=== PATIENT | female | born 1980 | race Caucasian/White ===

== ENCOUNTER 2018-12-23 20:07 | Emergency (ER) | payer OTHER ==
[~2018-12-23 20:07] MED LIST: ISOVUE-370 76%-LOCM 1 ML ONE
[2018-12-23] MEDS ORDERED: Lorazepam 2 MG/ML VIAL ONE (21:34)
--- NOTE | 2018-12-23 22:12 | RAD ---
Exam: Chest one view: HISTORY: Shortness of breath, history of COPD FINDINGS: Right subclavian catheter injection port. Small opacity overlies the right paravertebral region overl ankita the right heart border. No confluent pneumonia, overt edema, or pleural effusion. Heart size is normal. IMPRESSION: No acute intrathoracic disease.
[2018-12-23 22:17] LABS: #Lymphocytes 3.1 thou/uL (1.20-3.40); #Monocytes 0.6 thou/uL (0.11-0.59); #Neutrophils 8.1 thou/uL (1.40-6.50); %Basophils 0.2 % (0.0-1.0); %Eosinophils 0.2 % (0.0-10.0); %Lymphocytes 26.2 % (21.0-51.0); %Neutrophils 68.3 % (42.0-75.0); Hemoglobin 14.2 g/dL (12.0-16.0); Mean Corpuscular HGB CONC 34.8 g/dL (32.0-36.0); Mean Corpuscular Volume 91.9 fL (78.0-98.0); Mean Platelet Volume 6.8 fL (7.4-10.4); Platelet Count 310 thou/uL (130-400); RBC Distribution Width 12.7 % (11.5-14.5); Red Blood Cell (RBC) Count 4.43 mill/uL (4.20-5.40); White Blood Cell (WBC) Count 11.9 thou/uL (4.8-10.8)
[2018-12-23 22:20] LABS: Bilirubin Moderate (Negative); Blood, Urine Negative (Negative); Clarity TURBID (Clear); Glucose, Urine (Dipstick) Negative (Negative); Leukocyte Small (Negative); Nitrite Negative (Negative); Pregnancy Test - Urine (BHCG) Negative (Negative); Pregu Control Background? CLEAR/WHITE (CLR/WHITE); Pregu Control Bar Appear? YES (CONTROL BAR); Protein, Urine (Dipstick) 100 mg/dL (Neg-Trace); Specific Gravity 1.035 (1.002-1.036)
[2018-12-23 22:22] LABS: PTT 27.1 SEC (22.9-36.1); Prothrombin Time 13.6 SEC (12.0-14.7)
[2018-12-23 22:23] LABS: D-Dimer Test 1.26 *mcg/mL (0.27-0.43)
[2018-12-23 22:24] LABS: Squamous Epithelial 21-50 HPF (0-3); WBC/HPF 21-50 HPF (0-3)
[2018-12-23 22:25] LABS: Pathc Cast-AUWi Flag 11.97 (0-2.49); Yeast-AUWi Flag 59.5 (0-25.0)
[2018-12-23 22:32] LABS: Bacteria/HPF 3+ HPF (None Seen); Hyaline Casts/LPF 4-6 HYALINE CAST LPF (0-3 Hyaline); RBC/HPF 0-3 HPF (0-3)
[2018-12-23 22:40] LABS: ALT (SGPT) 60 U/L (8-55); AST (SGOT) 51 U/L (5-34); Albumin 4.3 g/dL (3.5-5.0); Alkaline Phosphatase 79 U/L (40-150); Anion Gap 15 mmol/L (10-20); BUN (Urea Nitrogen) 7 mg/dL (7.0-18.7); Bilirubin, Total 0.3 mg/dL (0.2-1.2); Calc. Creatinine Clearance 0 mL/min (70-130); Calcium 9.8 mg/dL (7.8-10.44); Carbon Dioxide 22 mmol/L (22-29); Chloride 109 mmol/L (98-107); Estimated GFR-MDRD 76; Globulin 3.2 g/dL (2.4-3.5); Glucose 99 mg/dL (70-105); Lipase 15 U/L (8-78); Protein, Total 7.5 g/dL (6.0-8.3); Sodium 143 mmol/L (136-145)
[2018-12-23 22:45] LABS: Potassium 2.8 mmol/L (3.5-5.1)
--- NOTE | 2018-12-23 23:17 | CT ---
EXAM: CT angiogram of the chest including 3-D rendering: HISTORY: Dyspnea shortness of breath anxiety COMPARISON: None FINDINGS: There is adequate opacification of the pulmonary arteries. No evidence for aortic aneurysm or dissection. No convincing CT evidence for acute pulmonary embolism. No significant acute pulmonary parenchymal process. No evidence for mediastinal mass or adenopathy. No evidence for pleural or pericardial effusion. The visualized upper abdomen is unremarkable. Minimal chronic appearing pleural-based parenchymal changes in the lingula and right middle lobe. Poo rly circumscribed 0.4 cm nodule in the right middle lobe. Postsurgical device between the right ventricle and the right side of the left atrium. IMPRESSION: No convincing CT evidence for acute pulmonary embolism. Minimal linear scarring in the right middle lobe and lingula. 0.4 cm irregularly-shaped nodular focus in the right middle lobe.
[2018-12-23] MEDS ORDERED: Potassium Chloride 20 MEQ TAB ONE (23:23)
== END 2018-12-24 01:01 | disposition home or self-care (01) ==
LOC: ERS 20:07
DX: F41.9 Anxiety disorder, unspecified (principal); R06.02 Shortness of breath; F32.9 Major depressive disorder, single episode, unspecified; F43.10 Post-traumatic stress disorder, unspecified; F42.9 Obsessive-compulsive disorder, unspecified; Z86.73 Personal history of transient ischemic attack (TIA), and cerebral infarction without residual deficits; Z79.899 Other long term (current) drug therapy
CPT/HCPCS: 36415; 71045; 71275; 80053; 81003; 81015; 81025; 83690; 83735; 85025; 85379; 85610; 85730; 87086; 96361; 96374; 96375; J1642; J2060; Q9966

== ENCOUNTER 2019-01-13 00:11 | Emergency (ER) | payer OTHER ==
[2019-01-13 00:52] LABS: Hemoglobin 14.3 g/dL (12.0-16.0); Mean Corpuscular HGB CONC 33.4 g/dL (32.0-36.0); Mean Corpuscular Hemoglobin 31.4 pg (27.0-31.0); Mean Platelet Volume 6.8 fL (7.4-10.4); Platelet Count 253 thou/uL (130-400); RBC Distribution Width 13.8 % (11.5-14.5); Red Blood Cell (RBC) Count 4.55 mill/uL (4.20-5.40); White Blood Cell (WBC) Count 11.7 thou/uL (4.8-10.8)
[2019-01-13 01:00] LABS: ALT (SGPT) 13 U/L (8-55); AST (SGOT) 15 U/L (5-34); Alkaline Phosphatase 82 U/L (40-150); Anion Gap 12 mmol/L (10-20); BUN (Urea Nitrogen) 5 mg/dL (7.0-18.7); Bilirubin, Total 0.3 mg/dL (0.2-1.2); Calc. Creatinine Clearance 0 mL/min (70-130); Calcium 9.4 mg/dL (7.8-10.44); Carbon Dioxide 23 mmol/L (22-29); Chloride 109 mmol/L (98-107); Estimated GFR-MDRD 84; Glucose 85 mg/dL (70-105); Potassium 3.8 mmol/L (3.5-5.1); Sodium 140 mmol/L (136-145)
[2019-01-13 01:05] LABS: #Monocytes 0.6 thou/uL (0.11-0.59); #Neutrophils 6.1 thou/uL (1.40-6.50); %Basophils 0.3 % (0.0-1.0); %Eosinophils 0.4 % (0.0-10.0); %Lymphocytes 42.1 % (21.0-51.0); %Neutrophils 52.1 % (42.0-75.0)
[2019-01-13 02:07] LABS: Bilirubin Negative (Negative); Blood, Urine Trace (Negative); Clarity Hazy (Clear); Glucose, Urine (Dipstick) Negative (Negative); Leukocyte Trace (Negative); Nitrite Negative (Negative); Protein, Urine (Dipstick) Trace mg/dL (Neg-Trace); Urobilinogen 0.2 mg/dL (Less than 2)
[2019-01-13 02:17] LABS: Bacteria/HPF 2+ HPF (None Seen); RBC/HPF 21-50 HPF (0-3); Squamous Epithelial 21-50 HPF (0-3); WBC/HPF 21-50 HPF (0-3)
[2019-01-13 02:49] LABS: Pregnancy Test - Urine (BHCG) Negative (Negative); Pregu Control Background? CLEAR/WHITE (CLR/WHITE); Pregu Control Bar Appear? YES (CONTROL BAR)
[2019-01-13 02:50] LABS: Specific Gravity Greater than 1.060 (1.002-1.036)
--- NOTE | 2019-01-13 07:35 | CT ---
PRELIMINARY REPORT/[facility]/EMERGENCY AFTER HOURS PROCEDURE: EXAM: CT Abdomen and Pelvis With Contrast EXAM DATE/TIME: 01/13/2019 12:50 AM CLINICAL HISTORY: 38 years old, female; Generalized; Prior surgery; Surgery date: 6+ months; Surgery type: HX of hysterectomy, cholecystectomy and appendectomy. ; Patient HX: 38yo female presents for abdominal pain for the last 2 weeks. 2 weeks ago she presented to [facility] for abd pain and was discharged with dx of viral gastroenteritis and hiatal hernia. The pain has increased in intensity si nce, she also endorses nausea/vomiting. Reports no bm or flatus for last 4 days. TECHNIQUE: Imaging protocol: Axial computed tomography images of the abdomen and pelvis with intravenous contrast. Coronal and sagittal reformatted images were created and reviewed. COMPARISON: No relevant prior studies available. FINDINGS: Liver: Diffuse fatty liver infiltration. No liver mass. Gallbladder and bile ducts: Cholecystectomy. Pancreas: No acute pathology. No ductal dilation. Spleen: No solid mass. No splenomegaly. Adrenals: No mass. Kidneys and ureters: No solid renal mass or hydronephrosis bilaterally. Simple 9 mm cyst left lower pole. Stomach and bowel: Fluid attenuation throughout the colonic lumen consistent with diarrheal stools. No bowel obstruction or wall thickening. Appendix: Appendectomy. Intraperitoneal space: No free air. Vasculature: IVC filter in place. No aortic aneurysm. Lymph nodes: No enlarged lymph nodes. Bladder: Unremarkable as visualized. Reproductive: Per history the patient is post hysterectomy however uterus is seen. Endometrium appears somewhat distended with fluid. Bones/joints: No acute fracture. No dislocation. Soft tissues: Unremarkable. IMPRESSION: Fatty liver. Fluid attenuation throughout the colonic lumen consistent with diarrheal stools. Per history the patient is post hysterectomy however uterus is seen. Endometrium appears somewhat distended with fluid. Thank you for allowing us to participate in the care of your patient. Dictated and Authenticated by: Raphael Brambila MD 01/13/2019 2:36 AM Central Time ([place] & [place]) FINAL REPORT CT ABDOMEN AND PELVIS WITH IV CONTRAST PERFORMED ON AN EMERGENCY BASIS: Date: 01/13/19 Time: 0111 hours HISTORY: Abdominal pain. FINDINGS/IMPRESSION: Agree with the preliminary report by Dr. Brambila from [facility]. Fluid within the endometria l cavity of the uterus. IVC filter in place. Fluid within the colon consistent with diarrhea, but a nonspecific finding. No active inflammation is apparent. Code QA. Transcribed Date/Time: 01/13/2019 7:45 AM
[2019-01-13] MEDS ORDERED: ISOVUE-370 76%-LOCM 1 ML ONE (13:32)
--- NOTE | 2019-01-14 14:08 | EKG ---
Test Reason : Blood Pressure : / mmHG Vent. Rate : 073 BPM Atrial Rate : 073 BPM P-R Int : 170 ms QRS Dur : 082 ms QT Int : 392 ms P-R-T Axes : 067 068 049 degrees QTc Int : 431 ms Normal sinus rhythm Normal ECG Confirmed by CARLOS ALBERTO ADAMS ([id number]), image editor KAREN ROMERO ([id number]) on 01/14/2019 2:07:58 PM Referred By: Confirmed By:CARLOS ALBERTO ADAMS
== END 2019-01-13 04:23 | disposition home or self-care (01) ==
LOC: ERS 00:11
DX: R10.13 Epigastric pain (principal); R10.817 Generalized abdominal tenderness; F41.9 Anxiety disorder, unspecified; F32.9 Major depressive disorder, single episode, unspecified; F42.9 Obsessive-compulsive disorder, unspecified; F43.10 Post-traumatic stress disorder, unspecified; F17.210 Nicotine dependence, cigarettes, uncomplicated; Z79.899 Other long term (current) drug therapy; Z86.73 Personal history of transient ischemic attack (TIA), and cerebral infarction without residual deficits
CPT/HCPCS: 36415; 74177; 80053; 81003; 81015; 81025; 83690; 85025; 93005; 96361; 96374; J1642; Q9966

== ENCOUNTER 2019-01-24 21:26 | Emergency (ER) | payer OTHER ==
--- NOTE | 2019-01-24 21:57 | RAD ---
Portable frontal chest radiograph: 01/24/2019 COMPARISON: 12/23/2018 HISTORY: Short of breath FINDINGS: Lungs are clear. Heart and mediastinal contours appear within normal limits. Stable Port-A- Cath on the right. Stable radiopaque structure overlies the cardiac silhouette to the right of midline suggesting a closure device associated with the atrial septum. IMPRESSION: No acute findings. Stable appearance of the chest.
[2019-01-24 22:23] LABS: #Basophils 0.1 thou/uL (0.0-0.2); #Lymphocytes 3.4 thou/uL (1.20-3.40); #Monocytes 0.7 thou/uL (0.11-0.59); #Neutrophils 5.9 thou/uL (1.40-6.50); %Basophils 0.5 % (0.0-1.0); %Eosinophils 0.4 % (0.0-10.0); %Lymphocytes 33.9 % (21.0-51.0); %Monocytes 6.7 % (0.0-10.0); %Neutrophils 58.5 % (42.0-75.0); Hemoglobin 15.1 g/dL (12.0-16.0); Mean Corpuscular HGB CONC 33.7 g/dL (32.0-36.0); Mean Corpuscular Hemoglobin 31.6 pg (27.0-31.0); Mean Corpuscular Volume 93.9 fL (78.0-98.0); Mean Platelet Volume 6.5 fL (7.4-10.4); Platelet Count 295 thou/uL (130-400); RBC Distribution Width 13.6 % (11.5-14.5); Red Blood Cell (RBC) Count 4.78 mill/uL (4.20-5.40); White Blood Cell (WBC) Count 10.1 thou/uL (4.8-10.8)
[2019-01-24 22:33] LABS: PTT 26.3 SEC (22.9-36.1); Prothrombin Time 13.4 SEC (12.0-14.7)
[2019-01-24 22:34] LABS: D-Dimer Test 1.3 *mcg/mL (0.27-0.43)
[2019-01-24 22:46] LABS: ALT (SGPT) 33 U/L (8-55); AST (SGOT) 29 U/L (5-34); Albumin 4.2 g/dL (3.5-5.0); Alkaline Phosphatase 100 U/L (40-150); Anion Gap 16 mmol/L (10-20); BUN (Urea Nitrogen) 7 mg/dL (7.0-18.7); Bilirubin, Total 0.4 mg/dL (0.2-1.2); CK (CPK) 97 U/L (29-168); Calc. Creatinine Clearance 0 mL/min (70-130); Calcium 9.8 mg/dL (7.8-10.44); Carbon Dioxide 20 mmol/L (22-29); Chloride 106 mmol/L (98-107); Estimated GFR-MDRD 87; Globulin 3.4 g/dL (2.4-3.5); Glucose 95 mg/dL (70-105); Potassium 3.9 mmol/L (3.5-5.1); Protein, Total 7.6 g/dL (6.0-8.3); Sodium 138 mmol/L (136-145)
--- NOTE | 2019-01-24 23:44 | ULT ---
Right upper extremity venous Doppler ultrasound: 01/24/2019 COMPARISON: None HISTORY: Neck swelling TECHNIQUE: Multiplanar grayscale sonographic imaging of the venous structures of the right upper extr emity obtained with color flow and spectral analysis FINDINGS: The right internal jugular vein, subclavian vein, axillary vein, basilic vein, brachial vei n, cephalic vein, ulnar vein, and radial vein were interrogated in demonstrate patency with no evidence for DVT. IMPRESSION: No evidence for deep venous thrombosis of the right upper extremity.
[2019-01-25] MEDS ORDERED: Fentanyl 100 MCG/2 ML VIAL ONE (00:04)
[2019-01-25 00:20] LABS: Bilirubin Negative (Negative); Blood, Urine Negative (Negative); Clarity Clear (Clear); Glucose, Urine (Dipstick) Normal (Negative); Leukocyte Negative Leu/uL (Negative); Nitrite Negative (Negative); Protein, Urine (Dipstick) 10 mg/dL (Neg-Trace)
[2019-01-25 00:29] LABS: Medtox Reader # READER 4; Opiate Screen Detected (NotDetected); THC/Cannabinoid Screen Detected (NotDetected)
[2019-01-25 00:30] LABS: Amphetamine Not Detected (NotDetected); Barbiturates Screen Not Detected (NotDetected); Benzodiazepine Screen Detected (NotDetected); Cocaine Metabolite Screen Not Detected (NotDetected); Medtox Control Line Valid? VALID (VALID); Methadone Not Detected (NotDetected); Methamphetamine Not Detected (NotDetected); Oxycodone Screen Not Detected (NotDetected); Phencyclidine (PCP) Not Detected (NotDetected); Tricyclic Screen Detected (NotDetected)
--- NOTE | 2019-01-25 06:20 | CT ---
CT ANGIOGRAM CHEST: 01/24/2019 HISTORY: Dyspnea. Assess for pulmonary embolism. COMPARISON: None. TECHNIQUE: Axial CT imaging at 2.5 mm intervals, through the chest, with coronal and sagittal 3D reformatted rohan ging, using a CT angiogram protocol. FINDINGS: There is a right-sided Port-A-Cath present, with the distal tip extending into the region of the cavo atrial junction, in stable position. An atrioseptal closure device is noted. There is no axillary lymphadenopathy. No mediastinal or hilar lymphadenopathy is seen. There is no pleural, pericardial, or mediastinal fluid evident. Review of the upper abdomen demonstrates cholecystectomy clips. There is no pneumothorax seen on either side. There is linear density in the lingula, inferiorly, suggesting scar and/or volume loss, stable. There is a right middle lobe pulmonary nodule, measuring 5-6 mm, stable when compared to the 12/24/19 19 study. Review of the osseous structures demonstrates no worrisome lytic or blastic bone lesions. There is no discrete filling defect seen within the pulmonary arterial vasculature to suggest the pre sence of acute pulmonary embolism. There is mixing of opacified and un opacified blood in the region of the internal jugular vein, on th e right. Doppler interrogation of the right internal jugular vein performed on 01/24/2019 demonstrat ed patency. IMPRESSION: No evidence for pulmonary arterial embolism. POS: OFF
--- NOTE | 2019-01-27 14:47 | EKG ---
Test Reason : Blood Pressure : / mmHG Vent. Rate : 076 BPM Atrial Rate : 076 BPM P-R Int : 164 ms QRS Dur : 078 ms QT Int : 386 ms P-R-T Axes : 052 025 012 degrees QTc Int : 434 ms Normal sinus rhythm Possible Left atrial enlargement Borderline ECG Confirmed by RACHAEL LOPEZ MD ([id number]), editorial writer ERICKA BRISCOE ([id number]) on 01/27/2019 2:46:55 PM Referred By: Confirmed By:RACHAEL LOPEZ MD
== END 2019-01-25 00:45 | disposition home or self-care (01) ==
LOC: ERS 21:26
DX: M54.2 Cervicalgia (principal); F41.9 Anxiety disorder, unspecified; F32.9 Major depressive disorder, single episode, unspecified; F43.10 Post-traumatic stress disorder, unspecified; F17.210 Nicotine dependence, cigarettes, uncomplicated; Z79.899 Other long term (current) drug therapy
CPT/HCPCS: 36415; 71045; 71275; 80053; 80306; 81003; 82550; 84484; 85025; 85379; 85610; 85730; 93005; 94760; 96361; 96374; J3010; Q9966

== ENCOUNTER 2020-02-01 23:21 | Emergency (ER) | payer OTHER | END 2020-02-01 23:32 | disposition home or self-care (01) | LOC: ERS 23:21 | DX: K02.9 Dental caries, unspecified (principal); J44.9 Chronic obstructive pulmonary disease, unspecified; F41.9 Anxiety disorder, unspecified; F32.9 Major depressive disorder, single episode, unspecified; F43.10 Post-traumatic stress disorder, unspecified; F17.210 Nicotine dependence, cigarettes, uncomplicated; F42.9 Obsessive-compulsive disorder, unspecified; Z86.73 Personal history of transient ischemic attack (TIA), and cerebral infarction without residual deficits; Z79.899 Other long term (current) drug therapy | CPT/HCPCS: 99283 ==

== ENCOUNTER 2020-07-28 01:12 | Observation (INO) | payer OTHER ==
[2020-07-28 02:00] LABS: Bilirubin Negative (Negative); Blood, Urine Trace (Negative); Clarity Turbid (Clear); Glucose, Urine (Dipstick) Normal (Negative); Ketone, Urine Negative (Negative); Leukocyte 500 Leu/uL (Negative); Nitrite Negative (Negative); Protein, Urine (Dipstick) Negative (Neg-Trace); Specific Gravity, Urine 1.012 (1.002-1.036); Urobilinogen Normal mg/dL (Less than 2); WBC/HPF 21-50 HPF (0-3); pH, Urine 5.5 (5.0-9.0)
[2020-07-28 02:01] LABS: Bacteria/HPF 1+ HPF (None Seen)
[2020-07-28] MEDS ORDERED: Acetaminophen 500 MG TAB ONE (02:01)
[2020-07-28 02:15] LABS: Hemoglobin 14.7 g/dL (12.0-16.0); Mean Corpuscular HGB CONC 33.9 g/dL (32.0-36.0); Mean Corpuscular Hemoglobin 30.5 pg (27.0-31.0); Mean Corpuscular Volume 89.8 fL (78.0-98.0); Mean Platelet Volume 6.5 fL (7.4-10.4); Platelet Count 314 thou/uL (130-400); Red Blood Cell (RBC) Count 4.84 mill/uL (4.20-5.40); White Blood Cell (WBC) Count 26.3 thou/uL (4.8-10.8)
[2020-07-28 02:23] LABS: Amphetamine Not Detected (NotDetected); Barbiturates Screen Not Detected (NotDetected); Benzodiazepine Screen Detected (NotDetected); Cocaine Metabolite Screen Not Detected (NotDetected); Medtox Control Line Valid? VALID (VALID); Medtox Reader # READER 4; Methadone Not Detected (NotDetected); Methamphetamine Not Detected (NotDetected); Opiate Screen Not Detected (NotDetected); Oxycodone Screen Not Detected (NotDetected); Phencyclidine (PCP) Not Detected (NotDetected); THC/Cannabinoid Screen Detected (NotDetected); Tricyclic Screen Not Detected (NotDetected)
[2020-07-28 02:33] LABS: Pregnancy Test - Urine (BHCG) Negative (Negative); Pregu Control Background? CLEAR/WHITE (CLR/WHITE); Pregu Control Bar Appear? YES (CONTROL BAR); Specific Gravity 1.012 (1.002-1.036)
[2020-07-28 02:38] LABS: ALT (SGPT) 12 U/L (8-55); AST (SGOT) 13 U/L (5-34); Acetaminophen Less than 6.0 mcg/mL (10.0-30.0); Albumin 4.3 g/dL (3.5-5.0); Alcohol Less than 10 mg/dL (Less than 10); Alkaline Phosphatase 91 U/L (40-110); Anion Gap 16 mmol/L (10-20); BUN (Urea Nitrogen) 6 mg/dL (7.0-18.7); Bilirubin, Total 0.3 mg/dL (0.2-1.2); Calc. Creatinine Clearance 0 mL/min (70-130); Calcium 9.1 mg/dL (7.8-10.44); Carbon Dioxide 18 mmol/L (22-29); Chloride 106 mmol/L (98-107); Globulin 3.7 g/dL (2.4-3.5); Glucose 102 mg/dL (70-105); Potassium 3.7 mmol/L (3.5-5.1); Salicylate Less than 8.0 mg/dL (15.0-30.0); Sodium 136 mmol/L (136-145)
[2020-07-28 02:46] LABS: Band 2 % (5-11); Lymphocytes 14 % (21-51); MDiff Complete? YES; Monocytes 2 % (0-10); Neutrophil 80 % (42-75); Reactive Lymphocytes 2 % (0-10)
[2020-07-28] MEDS ORDERED: cefTRIAXone\\ROCEPHIN 1 GM VIAL ONE (03:05)
[2020-07-28] MEDS ORDERED: Metoclopramide 10 MG/10 ML UDCUP ONE (05:59)
[2020-07-28] MEDS ORDERED: Metoclopramide HCl 10 MG/2 ML VIAL ONE (05:59)
[2020-07-28] MEDS ORDERED: diphenhydrAMINE 50 MG/ML VIAL ONE (05:59)
[2020-07-28] MEDS ORDERED: clonazePAM 1 MG TAB ONE (07:25)
[2020-07-28] MEDS ORDERED: Diazepam 5 MG TAB ONE (07:25)
--- NOTE | 2020-07-28 07:40 | CT ---
PRELIMINARY REPORT/[facility]/AFTER HOURS PROCEDURE CT HEAD WITHOUT INTRAVENOUS CONTRAST: CLINICAL HISTORY: Headache. TECHNIQUE: Axial computed tomography images of the head/brain without intravenous contrast. COMPARISON: None provided. FINDINGS: BRAIN: No acute intraparenchymal hemorrhage. No mass lesion. No CT evidence for acute territorial inf arct. No midline shift or extra-axial collection. VENTRICLES: No hydrocephalus. ORBITS: The orbits are unremarkable. SINUSES AND MASTOIDS: Frothy secretions are noted within the left sphenoid sinus. A trace fluid leve l is appreciated within the right sphenoid sinus. The mastoid air cells are clear. SOFT TISSUES: No significant facial or scalp soft tissue swelling evident. No radiopaque foreign body is seen. BONES: No acute skull fracture. IMPRESSION: 1. No acute intracranial findings. 2. Frothy secretions within the left sphenoid sinus and a trace fluid level within the right sphenoi d sinus, correlate for acute sinusitis. ELECTRONICALLY SIGNED BY: Satish Mckeon MD Jul 28, 2020 2:44:49 AM [employer] This report is intended for review by the ordering physician only, in accordance of law. If you recei ve this report in error, please call [facility] at [phone]. FINAL REPORT BY DR KIM EMERGENCY AFTER HOURS STUDY CT BRAIN WITHOUT CONTRAST: 07/28/2020 2:32 a.m. HISTORY: 40-year-old female with severe headache. FINDINGS: There is no evidence of acute intra-axial or extra-axial hemorrhage. There is no midline shift or any other mass effect. There is no extra-axial fluid collection. There is no evidence of obstructive hydrocephalus. Calvarium is intact. Frothy secretion in left sphenoid air cell. Tiny air-fluid level versus minimal mucosal thickening in right sphenoid air cell. Minimal mucosal thickening in right ethmoid air cells. Frontal sinuses are clear. Bilateral tympanomastoid cavities are clear. Agree with preliminary report by [facility]. IMPRESSION: No acute intracranial findings. CODE QA Transcribed Date/Time: 07/28/2020 9:38 AM
--- NOTE | 2020-07-28 08:39 | CT ---
CT ABDOMEN WITH CONTRAST CT PELVIS WITH CONTRAST: DATE: 07/28/2020 HISTORY: 40-year-old female with abdominal pain, nausea, vomiting, and leukocytosis. COMPARISON: 01/13/2019 TECHNIQUE: IV injection of iodinated contrast media: administered. Oral contrast media:Not administered FINDINGS: Lung bases: No consolidation or pleural effusion. IVC: Filter. Liver: Fatty. No other hepatic abnormality. Clips in gallbladder fossa. Abdominal aorta, kidneys, adrenals, pancreas, spleen, and urinary bladder, are normal. No evidence of appendicitis. History of appendectomy provided. Large intestine: Liquid stool in the lumen throughout, greater than on prior CT. No diverticulitis. Small bowel: No dilation. Ascites: None Pneumoperitoneum: None Abscess: None IMPRESSION: 1) diarrhea 2) hepatic steatosis. 3) status post cholecystectomy 4) inferior vena cava filter. 5) no other potentially acute findings.
[2020-07-28] MEDS ORDERED: Topiramate 25 MG TAB PO SCH ×2 (09:00→17:00)
[2020-07-28] MEDS ORDERED: OXcarbazepine 600 MG TAB PO SCH (09:00)
[2020-07-28] MEDS ORDERED: OXcarbazepine 300 MG TAB PO SCH (09:00)
[2020-07-28] MEDS ORDERED: DULoxetine 30 MG CAP PO SCH (09:00)
[2020-07-28] MEDS ORDERED: Montelukast Sodium 10 mg Tablet PO SCH (09:00)
[2020-07-28] MEDS ORDERED: Propranolol HCl 20 MG TAB PO SCH (09:00)
--- NOTE | 2020-07-28 09:24 | RAD ---
RADIOGRAPH CHEST 1 VIEW: DATE: 07/28/2020 HISTORY: 40-year-old female with suicidal ideation. Nausea and vomiting. COMPARISON: 01/24/2019 FINDINGS: There are no airspace densities, pulmonary edema, pneumothorax, or cardiomegaly. The lateral costophr enic angles are sharp. Right subclavian implantable vascular access port remains with distal tip at SVC. There has been no interval change. No pneumoperitoneum. IMPRESSION: 1. No acute cardiopulmonary findings. 2. Evidence for cancer therapy: Right-sided implantable vascular access port
[2020-07-28] MEDS ORDERED: Iopamidol-370 76% 500 ML 1 ML ONE (10:07)
[2020-07-28] MEDS ORDERED: Ketorolac Tromethamine 30 MG/ML VIAL ONE (11:24)
[2020-07-28] MEDS ORDERED: Promethazine HCl 25 MG/ML VIAL ONE (11:25)
--- NOTE | 2020-07-28 12:28 | PDOC.HHP ---
Hospitalist HPI Suicidial Ideation History of Present Illness: 40 y/o female presents to ER for feelings of not wanting to live and feeling overwhelmed with life. She states her mother the day of [place] and she has just had a hard time living in reality since then. States she does not have an active plan but "would be fine if I didn't wake up tomorrow." Has felt this way on and off since her mother . Denies homicidal thoughts, hallucinations. States her appetite has been appropriate. Denies guilt and energy has been poor. Patient also has abdominal pain, diarrhea, left flank pain, dysuria, frequency, urgency and vomiting x4 days. She has been vomiting on and off 4-5x/daily. The color depends on stomach contents, denies blood in vomit. Abdominal and flank pain started yesterday, described as intermittent with no radiation. She denies any relieving or exacerbating factors. The abdominal pain was in left lower quadrant. Patient denies fever or chills. No travel history. Patient c/o headache since this morning, described as throbbing, worse with light or loud sounds. She has nausea and vomiting associated with the headache. She didn't take anything at home for the headache. Allergies/Adverse Reactions: Allergy/AdvReac Type Severity Reaction Status Date / Time acetaminophen [From Vicodin] Allergy Verified 07/28/20 08:45 butorphanol [From Stadol] Allergy Verified 07/28/20 08:45 codeine Allergy Verified 07/28/20 08:44 hydrocodone [From Vicodin] Allergy Verified 07/28/20 08:45 hydromorphone [From Dilaudid] Allergy Verified 07/28/20 08:45 ketorolac [From Toradol] Allergy Verified 07/28/20 08:45 NSAIDS (Non-Steroidal Allergy Verified 07/28/20 08:45 Anti-Inflamma ondansetron [From Zofran] Allergy Verified 07/28/20 08:45 prednisone Allergy Verified 07/28/20 08:45 prochlorperazine Allergy Verified 07/28/20 08:45 [From Compazine] Home Medications: Medication Instructions Recorded Confirmed Type DULoxetine [Cymbalta] 90 mg PO DAILY 07/28/20 07/28/20 History Diazepam [Valium] 5 mg PO Q8H PRN 07/28/20 07/28/20 History Fondaparinux Sodium 7.5 mg SQ DAILY 07/28/20 07/28/20 History Mirtazapine [Remeron] 45 mg PO HS 07/28/20 07/28/20 History Montelukast Sodium [Singulair] 10 mg PO DAILY 07/28/20 07/28/20 History OXcarbazepine [Trileptal] 1,200 mg PO DAILY 07/28/20 07/28/20 History Propranolol [Inderal] 20 mg PO TID 07/28/20 07/28/20 History Topiramate [Topamax] 25 mg PO TID 07/28/20 07/28/20 History Umeclidinium [place] [Incruse 1 inh IH DAILY 07/28/20 07/28/20 History Ellipta] clonazePAM [Clonazepam] 1 mg PO TID 07/28/20 07/28/20 History traZODone HCl [Trazodone HCl] 225 mg PO HS 07/28/20 07/28/20 History Comments: clonazePAM TABLET : Strength - 1 mg : ORAL Patient Dose: 1 mg null 3 times a day. Cymbalta CAPSULE,DELAYED RELEASE (ENTERIC COATED) : Strength - 30 mg : ORAL Patient Dose: 3 tab(s) Oral once a day. Remeron TABLET : Strength - 45 mg : ORAL Patient Dose: 1 tab(s) Oral once a day (at bedtime). Trileptal TABLET : Strength - 600 mg : ORAL Patient Dose: 2 tab(s) Oral once a day. traZODone TABLET : Strength - 150 mg : ORAL Patient Dose: 1.5 tab(s) Oral once a day (at bedtime). fondaparinux SYRINGE (ML) : Strength - 7.5 mg/0.6 mL : [0.6 mL(s)] : SUBCUTANEOUS Patient Dose: once a day. Topamax TABLET : Strength - 25 mg : ORAL Patient Dose: 1 tab(s) Oral 3 times a day. Singulair TABLET : Strength - 10 mg : ORAL Patient Dose: once a day. Incruse Ellipta BLISTER, WITH INHALATION DEVICE : Strength - 62.5 mcg/actuation : INHALATION Patient Dose: Unknown. propranolol oral TABLET : Strength - 20 mg : ORAL Patient Dose: 1 tab(s) Oral 3 times a day. Past History: PMHx: 1. COPD - wears oxygen at night and as needed during the day. 2. 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 Migraines 5. Major Depressive Disorder 6. PTSD 7. Anxiety 8. Borderline Personality Disorder PSHx: 1. Tendon Surgery to Right Hand 2. PORT-A-CATH placement x5 3. Appendectomy 4. Cholecystectomy 5. Tubal ligation 6. Lipom removed off the spine FHx: Noncontributory Social: Smokes cigarettes, 1 ppd Smokes marijuana occasionally Denies any alcohol intake. Hospitalist HPI ROS Constitutional: denies: fever, chills, sweats, weakness, malaise Eyes: denies: pain, vision change, conjunctivae inflammation, eyelid inflammation, redness ENT: denies: ear pain, ear discharge, nose pain, nose discharge, nose congestion, mouth pain, mouth swelling, throat pain, throat swelling Respiratory: denies: cough, dry, shortness of breath, hemoptysis, SOB with excertion, pleuritic pain, sputum, wheezing Cardiovascular: denies: chest pain, palpitations, orthopnea, paroxysmal noc. dy spnea, edema, light headedness Gastrointestinal: reports: nausea, vomiting, abdominal pain, diarrhea Genitourinary: reports: dysuria, frequency (Right CVA tenderness) Musculoskeletal: denies: neck pain, shoulder pain, arm pain, back pain, hand pain, leg pain, foot pain Skin: denies: rash, lesions, gail, bruising Neurological: denies: weakness, numbness, incoordination, change in speech, confusion, seizures All other systems reviewed; all pertinent +/- noted in HPI/Subj Hospitalist Exam General Appearance: NAD, awake alert Eye: PERRL, anicteric sclera ENT: normocephalic atraumatic, no oropharyngeal lesions, moist mucosa Neck: supple, symmetric, no JVD, no thyromegaly, no lymphadenopathy, no carotid bruit Heart: RRR, no murmur, no gallops, no rubs, normal peripheral pulses Respiratory: CTAB, no wheezes, no rales, no ronchi, normal chest expansion, no tachypnea, normal percussion Gastrointestinal: soft, non-distended, no palpable masses, no hepatomegaly, no splenomegaly, no bruit, tender to palpation (LLQ). negative: normal bowel sounds (hyperactive bowel sounds) Extremities: no cyanosis, no clubbing, no edema Skin: normal turgor, no lesions, no rashes Neurological: cranial nerve grossly intact, normal sensation to touch, no weakness, no focal deficits, no new deficit Musculoskeletal: normal tone, normal strength, no muscle wasting Psychiatric: normal affect, normal behavior, A&O x 3 Hospitalist Results Result Diagrams: 07/28/20 02:03 07/28/20 02:03 Lab results: Laboratory Last Values WBC 26.3 thou/uL (4.8-10.8) H 07/28/20 02:03 RBC 4.84 mill/uL (4.20-5.40) 07/28/20 02:03 Hgb 14.7 g/dL (12.0-16.0) 07/28/20 02:03 Hct 43.4 % (36.0-47.0) 07/28/20 02:03 MCV 89.8 fL (78.0-98.0) 07/28/20 02:03 MCH 30.5 pg (27.0-31.0) 07/28/20 02:03 MCHC 33.9 g/dL (32.0-36.0) 07/28/20 02:03 RDW 15.0 % (11.5-14.5) H 07/28/20 02:03 Plt Count 314 thou/uL (130-400) 07/28/20 02:03 MPV 6.5 fL (7.4-10.4) L 07/28/20 02:03 Neutrophils % (Manual) 80 % (42-75) H 07/28/20 02:03 Band Neuts % (Manual) 2 % (5-11) L 07/28/20 02:03 Lymphocytes % (Manual) 14 % (21-51) L 07/28/20 02:03 Reactive Lymphs % 2 % (0-10) 07/28/20 02:03 Monocytes % (Manual) 2 % (0-10) 07/28/20 02:03 Lymphocytes # Not Reportable 07/28/20 02:03 Sodium 136 mmol/L (136-145) 07/28/20 02:03 Potassium 3.7 mmol/L (3.5-5.1) 07/28/20 02:03 Chloride 106 mmol/L (98-107) 07/28/20 02:03 Carbon Dioxide 18 mmol/L (22-29) L 07/28/20 02:03 Anion Gap 16 mmol/L (10-20) 07/28/20 02:03 BUN 6 mg/dL (7.0-18.7) L 07/28/20 02:03 Creatinine 0.73 mg/dL (0.6-1.1) 07/28/20 02:03 Estimated GFR (MDRD) 87 07/28/20 02:03 Glucose 102 mg/dL (70-105) 07/28/20 02:03 Lactic Acid 0.8 mmol/L (0.5-2.2) 07/28/20 09:18 Calcium 9.1 mg/dL (7.8-10.44) 07/28/20 02:03 Total Bilirubin 0.3 mg/dL (0.2-1.2) 07/28/20 02:03 AST 13 U/L (5-34) 07/28/20 02:03 ALT 12 U/L (8-55) 07/28/20 02:03 Alkaline Phosphatase 91 U/L (40-110) 07/28/20 02:03 Serum Total Protein 8.0 g/dL (6.0-8.3) 07/28/20 02:03 Albumin 4.3 g/dL (3.5-5.0) 07/28/20 02:03 Globulin 3.7 g/dL (2.4-3.5) H 07/28/20 02:03 Albumin/Globulin Ratio 1.2 g/dL (1.2-2.2) 07/28/20 02:03 TSH 3rd Generation 4.7422 uIU/mL (0.35-4.94) 07/28/20 02:03 Urine Color Light-Yellow (Yellow) 07/28/20 01:45 Urine Clarity Turbid (Clear) A 07/28/20 01:45 Urine pH 5.5 (5.0-9.0) 07/28/20 01:45 Ur Specific [place] 1.012 (1.002-1.036) 07/28/20 01:45 Ur Specific [place] 1.012 (1.002-1.036) 07/28/20 01:45 Urine Protein Negative mg/dL (Neg-Trace) 07/28/20 01:45 Urine Glucose (UA) Normal mg/dL (Negative) 07/28/20 01:45 Urine Ketones Negative mg/dL (Negative) 07/28/20 01:45 Urine Blood Trace (Negative) A 07/28/20 01:45 Urine Nitrite Negative (Negative) 07/28/20 01:45 Urine Bilirubin Negative (Negative) 07/28/20 01:45 Urine Urobilinogen Normal mg/dL (Less than 2) 07/28/20 01:45 Ur Leukocyte Esterase 500 [place]/uL (Negative) A 07/28/20 01:45 Urine RBC 11-20 HPF (0-3) A 07/28/20 01:45 Urine WBC 21-50 HPF (0-3) A 07/28/20 01:45 Ur Squamous Epith Cells 4-6 HPF (0-3) A 07/28/20 01:45 Urine Bacteria 1+ HPF (None Seen) A 07/28/20 01:45 Hyaline Casts 0-3 LPF (0-3) 07/28/20 01:45 Urine Test Negative (Negative) 07/28/20 01:45 Salicylates Less than 8.0 mg/dL (15.0-30.0) L 07/28/20 02:03 Urine Opiates Screen Not Detected (NotDetected) 07/28/20 01:45 Ur Oxycodone Screen Not Detected (NotDetected) 07/28/20 01:45 Urine Methadone Screen Not Detected (NotDetected) 07/28/20 01:45 Ur Propoxyphene Screen Not Detected (NotDetected) 07/28/20 01:45 Acetaminophen Less than 6.0 mcg/mL (10.0-30.0) L 07/28/20 02:03 Ur Barbiturates Screen Not Detected (NotDetected) 07/28/20 01:45 Ur Tricyclics Screen Not Detected (NotDetected) 07/28/20 01:45 Ur Phencyclidine Scrn Not Detected (NotDetected) 07/28/20 01:45 Ur Amphetamines Screen Not Detected (NotDetected) 07/28/20 01:45 U Methamphetamines Scrn Not Detected (NotDetected) 07/28/20 01:45 U Benzodiazepines Scrn Detected (NotDetected) H 07/28/20 01:45 U Cocaine Metab Screen Not Detected (NotDetected) 07/28/20 01:45 U Cannabinoids Screen Detected (NotDetected) H 07/28/20 01:45 Drug Screen Comment () 07/28/20 01:45 Plasma Alcohol Less than 10 mg/dL (Less than 10) 07/28/20 02:03 Hospitalist H&P A/P (1) Urinary tract infection Status: Acute (2) COPD (chronic obstructive pulmonary disease) Status: Chronic (3) Suicidal ideation Code(s): R45.851 - SUICIDAL IDEATIONS Status: Acute Plan: 40 y/o female patient admitted for UTI, COPD and Suicidal ideation. Labs showed Leukocytosis at 26.3. Normal liver and kidney function, GFR 87. Normal TSH. UDS positive for benzodiazepines and cannabinoids. Patient admits to marijuana use and takes Clonazepam. CT Abd/Pelvis showed diarrhea present, Portable chest xray showed metaport placement. PLAN: Urinary tract infection Urine culture Leukocytosis 26.3 Patient was given Rocephin in ER. COPD Monitor oxygen saturation Oxygen 4L via NC every night and PRN during the day. Suicidal ideation Depression PTSD Borderline Personality Disorder Anxiety -[facility] consult after medical clearance. - resume home clonazepam, diazepam, trazodone
[2020-07-28 15:22] VITALS: BMI 33.5
[2020-07-28] MEDS ORDERED: Propranolol 10 MG TAB PO SCH (17:00)
[2020-07-28] MEDS ORDERED: clonazePAM 1 MG TAB PO SCH (17:00)
[2020-07-28] MEDS: Diazepam 5 MG TAB PO PRN (18:04)
[2020-07-28] MEDS ORDERED: Metoclopramide HCl 10 MG/2 ML VIAL IVP PRN (20:38)
[2020-07-28] MEDS: Propranolol 10 MG TAB PO SCH (21:29)
[2020-07-28] MEDS: traZODone HCl 150 MG TAB PO SCH (21:29)
[2020-07-28] MEDS: Mirtazapine 15 MG TAB PO SCH (21:29)
[2020-07-28] MEDS: clonazePAM 1 MG TAB PO SCH (21:30)
[2020-07-28] MEDS: Nicotine 14 MG PATCH TOP SCH (21:30)
[2020-07-28] MEDS: Topiramate 25 MG TAB PO SCH (21:30)
[2020-07-28] MEDS ORDERED: Simethicone Chewable 80 MG TAB PO PRN (22:17)
[2020-07-29] MEDS ORDERED: Promethazine HCl 25 MG in Sodium Chloride 0.9% 50 ML IVPB PRN (03:53)
[2020-07-29] MEDS: Diazepam 5 MG TAB PO PRN ×3 (04:31→22:46)
[2020-07-29 04:59] LABS: SARS-CoV-2 PCR by NAA Not Detected (NotDetected)
[2020-07-29] MEDS ORDERED: traMADol HCl 50 MG TAB PO PRN (08:01)
[2020-07-29] MEDS: Ipratropium Bromide 2.5 ml Neb NEB SCH (08:15)
[2020-07-29] MEDS: DULoxetine 30 MG CAP PO SCH (08:40)
[2020-07-29] MEDS: clonazePAM 1 MG TAB PO SCH ×3 (08:40→22:02)
[2020-07-29] MEDS: OXcarbazepine 300 MG TAB PO SCH (08:41)
[2020-07-29] MEDS: Topiramate 25 MG TAB PO SCH ×3 (08:41→22:03)
[2020-07-29] MEDS: Propranolol 10 MG TAB PO SCH ×3 (08:42→22:04)
[2020-07-29] MEDS: Montelukast Sodium 10 mg Tablet PO SCH (08:42)
[2020-07-29] MEDS: Lidocaine 5% Patch TD SCH (08:53)
[2020-07-29] MEDS ORDERED: OXcarbazepine 600 MG TAB PO SCH (09:00)
[2020-07-29] MEDS ORDERED: FONDAPARINUX SODIUM SC SCH (09:00)
[2020-07-29] MEDS ORDERED: Fondaparinux Sodium 2.5 MG/0.5 ML SYRINGE SC SCH (09:00)
[2020-07-29] MEDS ORDERED: Loperamide HCl 1 MG/7.5 ML UDCUP PO PRN (11:00)
[2020-07-29] MEDS: Dicyclomine 10 MG CAP PO SCH ×3 (12:27→22:04)
[2020-07-29] MEDS: Morphine 2 MG/ML VIAL SLOW IVP PRN ×3 (12:27→22:05)
[2020-07-29] MEDS: Promethazine HCl 25 MG in Sodium Chloride 0.9% 50 ML IVPB PRN ×2 (13:46→22:06)
[2020-07-29] MEDS: Lactinex Tablet PO SCH ×2 (15:06→22:04)
[2020-07-29] MEDS: metroNIDAZOLE 500 MG TAB PO SCH ×2 (15:07→22:03)
--- NOTE | 2020-07-29 17:23 | PDOC.HOSPP ---
- Subjective Subjective: Patient had a low grade fever today 99. Patient reported she had multiple episodes of watery diarrhea. She stated she had history of C. difficile infection. Patient denies any suicidal ideation. sitter at bedside - Objective Vital Signs & Weight: Vital Signs (12 hours) Temp Pulse Resp BP Pulse Ox 07/29/20 15:02 98.2 F 68 147/90 H 98 07/29/20 08:19 100 07/29/20 08:15 61 16 100 07/29/20 07:50 98.0 F 61 18 120/58 L 98 Weight Weight 189 lb 9.561 oz I&O: 07/28/20 07/29/20 07/30/20 06:59 06:59 06:59 Intake Total 765 Balance 765 Result Diagrams: 07/28/20 02:03 07/28/20 02:03 Radiology Reviewed by me: Yes EKG Reviewed by me: Yes Hospitalist ROS - Medication Medications: Active Medications Generic Name Dose Route Start Last Admin Trade Name Freq PRN Reason Stop Dose Admin Acidophilus 1 tab 07/29/20 15:00 07/29/20 15:06 Lactinex Tablet PO 1 tab TID KINGSLEY Administration Clonazepam 1 mg 07/28/20 21:00 07/29/20 15:06 Clonazepam 1 Mg Tab PO 1 mg TID KINGSLEY Administration Diazepam 5 mg 07/28/20 17:25 07/29/20 15:06 Diazepam 5 Mg Tab PO 5 mg Q8H PRN Administration Anxiety/Agitation Dicyclomine HCl 10 mg 07/29/20 13:00 07/29/20 12:27 Dicyclomine 10 Mg Cap PO 10 mg QID KINGSLEY Administration Duloxetine HCl 90 mg 07/29/20 09:00 07/29/20 08:40 Duloxetine 30 Mg Cap PO 90 mg DAILY KINGSLEY Administration Promethazine HCl 25 mg/ Sodium 51 mls @ 204 mls/hr 07/29/20 03:53 07/29/20 05:34 Chloride IVPB 07/30/20 03:54 51 mls ONE PRN Administration Nausea/Vomiting Promethazine HCl 25 mg/ Sodium 51 mls @ 204 mls/hr 07/29/20 10:57 07/29/20 13:46 Chloride IVPB 51 mls Q6H PRN Administration Nausea/Vomiting Ipratropium Mcclure 2.5 ml 07/29/20 07:00 02/01/21 08:15 Ipratropium Mcclure 2.5 Ml Neb NEB 2.5 ml DAILY-RT KINGSLEY Administration Lidocaine 1 patch 07/29/20 09:00 07/29/20 08:53 Lidocaine 5% Patch TD 1 patch 0900 KINGSLEY Administration Metronidazole 500 mg 07/29/20 15:00 07/29/20 15:07 Metronidazole 500 Mg Tab PO 500 mg TID KINGSLEY Administration Mirtazapine 45 mg 07/28/20 21:00 07/28/20 21:29 Mirtazapine 15 Mg Tab PO 45 mg HS KINGSLEY Administration Montelukast Sodium 10 mg 07/29/20 09:00 07/29/20 08:42 Montelukast Sodium 10 Mg Tablet PO 10 mg DAILY KINGSLEY Administration Morphine Sulfate 2 mg 07/29/20 08:03 07/29/20 12:27 Morphine 2 Mg/Ml Vial SLOW IVP 2 mg Q3H PRN Administration Moderate to Severe Pain (6-10) Nicotine 14 mg 07/28/20 20:00 07/28/20 21:30 Nicotine 14 Mg Patch TOP 14 mg Q24HR KINGSLEY Administration Oxcarbazepine 1,200 mg 07/29/20 09:00 07/29/20 08:41 Oxcarbazepine 300 Mg Tab PO 1,200 mg DAILY KINGSLEY Administration Propranolol HCl 20 mg 07/28/20 21:00 07/29/20 15:07 Propranolol 10 Mg Tab PO 20 mg TID KINGSLEY Administration Simethicone 80 mg 07/28/20 22:17 07/28/20 22:26 Simethicone Chewable 80 Mg Tab PO 80 mg PCHS PRN Administration Gas Pain Topiramate 25 mg 07/28/20 21:00 07/29/20 15:07 Topiramate 25 Mg Tab PO 25 mg TID KINGSLEY Administration Tramadol HCl 50 mg 07/29/20 08:01 07/29/20 08:48 Tramadol Hcl 50 Mg Tab PO 50 mg Q4H PRN Administration Mild-Moderate Pain (1-5) Trazodone HCl 225 mg 07/28/20 21:00 07/28/20 21:29 Trazodone Hcl 150 Mg Tab PO 225 mg HS KINGSLEY Administration Hospitalist Exam Vitals: Vital Signs (12 hours) Temp Pulse Resp BP Pulse Ox 07/29/20 15:02 98.2 F 68 147/90 H 98 07/29/20 08:19 100 07/29/20 08:15 61 16 100 07/29/20 07:50 98.0 F 61 18 120/58 L 98 Weight Weight 189 lb 9.561 oz General Appearance: NAD Eye: PERRL ENT: normocephalic atraumatic Neck: supple Heart: RRR Respiratory: CTAB Gastrointestinal: soft, non-tender Extremities: no cyanosis Skin: normal turgor Neurological: cranial nerve grossly intact Musculoskeletal: normal tone Psychiatric: normal affect, normal behavior Hosp A/P - Plan UTI --cont empiric abx. Follow culture. Follow AM labs Diarrhea with hx of recurrent c diff infection --cdiff, add probiotic, start empiric Flagyl Suicidal ideation --denies any HI/SI to me --will need to have [facility] when medically ready COPD without exac --prn nebs, counseled smoking cessation.
[2020-07-29] MEDS ORDERED: Transdermal Patch Removal TOP SCH (21:00)
[2020-07-29] MEDS: Nicotine 14 MG PATCH TOP SCH (22:02)
[2020-07-29] MEDS: Mirtazapine 15 MG TAB PO SCH (22:03)
[2020-07-29] MEDS: traZODone HCl 150 MG TAB PO SCH (22:03)
[2020-07-30] MEDS: Morphine 2 MG/ML VIAL SLOW IVP PRN ×4 (05:12→17:10)
[2020-07-30] MEDS: Promethazine HCl 25 MG in Sodium Chloride 0.9% 50 ML IVPB PRN ×2 (05:15→11:50)
[2020-07-30 05:27] LABS: #Basophils 0.1 thou/uL (0.0-0.2); #Eosinphils 0.1 thou/uL (0.0-0.7); #Lymphocytes 3.9 thou/uL (1.20-3.40); #Monocytes 0.6 thou/uL (0.11-0.59); #Neutrophils 4.6 thou/uL (1.40-6.50); %Basophils 0.8 % (0.0-1.0); %Eosinophils 1.5 % (0.0-10.0); %Lymphocytes 41.5 % (21.0-51.0); %Monocytes 6.9 % (0.0-10.0); %Neutrophils 49.4 % (42.0-75.0); Hemoglobin 14.2 g/dL (12.0-16.0); Mean Corpuscular HGB CONC 32.9 g/dL (32.0-36.0); Mean Corpuscular Hemoglobin 30.1 pg (27.0-31.0); Mean Corpuscular Volume 91.6 fL (78.0-98.0); Mean Platelet Volume 6.4 fL (7.4-10.4); Platelet Count 236 thou/uL (130-400); RBC Distribution Width 14.7 % (11.5-14.5); Red Blood Cell (RBC) Count 4.71 mill/uL (4.20-5.40); White Blood Cell (WBC) Count 9.4 thou/uL (4.8-10.8)
[2020-07-30 05:48] LABS: ALT (SGPT) 13 U/L (8-55); AST (SGOT) 16 U/L (5-34); Albumin 3.6 g/dL (3.5-5.0); Alkaline Phosphatase 74 U/L (40-110); Anion Gap 11 mmol/L (10-20); BUN (Urea Nitrogen) 12 mg/dL (7.0-18.7); Bilirubin, Total 0.2 mg/dL (0.2-1.2); Calc. Creatinine Clearance 104 mL/min (70-130); Calcium 8.4 mg/dL (7.8-10.44); Carbon Dioxide 23 mmol/L (22-29); Chloride 107 mmol/L (98-107); Globulin 3.3 g/dL (2.4-3.5); Glucose 100 mg/dL (70-105); Magnesium 2.1 mg/dL (1.6-2.6); Potassium 3.9 mmol/L (3.5-5.1); Protein, Total 6.9 g/dL (6.0-8.3); Sodium 137 mmol/L (136-145)
[2020-07-30] MEDS: Ipratropium Bromide 2.5 ml Neb NEB SCH (07:31)
[2020-07-30] MEDS: Montelukast Sodium 10 mg Tablet PO SCH (09:40)
[2020-07-30] MEDS: Dicyclomine 10 MG CAP PO SCH ×3 (09:40→17:10)
[2020-07-30] MEDS: OXcarbazepine 300 MG TAB PO SCH (09:40)
[2020-07-30] MEDS: Lactinex Tablet PO SCH ×2 (09:40→14:07)
[2020-07-30] MEDS: metroNIDAZOLE 500 MG TAB PO SCH ×2 (09:40→14:07)
[2020-07-30] MEDS: clonazePAM 1 MG TAB PO SCH ×2 (09:41→14:08)
[2020-07-30] MEDS: DULoxetine 30 MG CAP PO SCH (09:41)
[2020-07-30] MEDS: Topiramate 25 MG TAB PO SCH ×2 (09:41→14:07)
[2020-07-30] MEDS: Lidocaine 5% Patch TD SCH (09:42)
[2020-07-30] MEDS: Propranolol 10 MG TAB PO SCH ×2 (09:42→16:35)
[2020-07-30] MEDS: Diazepam 5 MG TAB PO SCH ×2 (09:44→15:20)
[2020-07-30 14:26] LABS: Bilirubin Negative (Negative); Blood, Urine Negative (Negative); Glucose, Urine (Dipstick) Negative (Negative); Ketone, Urine Trace mg/dL (Negative); Leukocyte Small (Negative); Nitrite Negative (Negative); Protein, Urine (Dipstick) Negative (Neg-Trace); Urobilinogen 0.2 mg/dL (Less than 2); pH, Urine 5.5 (5.0-9.0)
[2020-07-30 14:29] LABS: Clarity Turbid (Clear)
[2020-07-30 14:30] LABS: Specific Gravity, Urine 1.032 (1.002-1.036)
[2020-07-30 14:33] LABS: Bacteria/HPF Rare-Few HPF (None Seen); RBC/HPF None Seen HPF (0-3)
[2020-07-30 16:37] VITALS: BP 114/64; TEMP 98.3
--- NOTE | 2020-07-30 16:53 | PDOC.DS.DS ---
Provider Date of Admission: 07/28/20 12:05 Date of Discharge: 07/30/20 Admitting Provider: Dulce Maria Mcmillan MD Consultations: None ([facility]) Primary Care Physician: OUT OF TOWN Course Hospital Course: Patient is unfortunate 40 years old female, who has significant past medical histories of COPD, on home O2, factor V Leiden, antithrombin 3, antiphospholipid antibody syndrome, major depressive disorder, PTSD, anxiety, borderline personality disorder, who presented to the ED with suicidal ideation. Due to recent stressors in the family, mom was on the day of . She also complained abdominal pain, diarrhea, flank pain dysuria and frequency for the past few days. Initial work-up in the ED, found that she had a leukocytosis of 26,000. UA was positive. However urine culture was no growth. Patient was started on empiric antibiotic. Patient also report that she has history of recurrent C. difficile. For that reason, we will start her on Flagyl empirically. Her C. difficile toxin/antigen came back negative. We will place her on Imodium as well as probiotics. Her Covid test was negative. With regard to her suicidal ideation, [facility] was consulted. Patient denies any suicidal ideation to me. She was evaluated by [facility], and formulated plan, patient to follow-up with them as outpatient. She is cleared to discharge from their standpoint. Her electrolytes have been corrected. At this time, patient will be discharged home empirically with Flagyl and/Levaquin to complete the 7- day course of antibiotics. She was advised to take probiotics given her history of recurrent C. difficile infection. Patient need to follow-up with her psychiatrist as well as PCP to further simplify her home regimen. Patient was advised to return to ED if your symptom recurs or worsen. Pertinent Studies: CT head: No acute intracranial abnormality. CT abdomen and pelvics: Diarrhea, hepatic steatosis Chest x-ray no acute cardiopulmonary process Procedures: None Lab Results: 07/30/20 05:16 07/30/20 05:16 Abnormal Lab Results - Last 48 hrs 07/30/20 05:16: Albumin/Globulin Ratio 1.1 L 07/30/20 05:16: RDW 14.7 H, MPV 6.4 L, Lymphocytes # 3.9 H, Monocytes # 0.6 H 07/30/20 14:15: Urine Clarity Turbid A, Urine Ketones Trace A, Ur Leukocyte Esterase Small H, Urine WBC 4-6 A, Ur Squamous Epith Cells 7-10 A, Amorphous Crystals 2+ A Microbiology - Entire Visit 07/28/20 01:45 Urine clean catch Urine Culture - Final 07/29/20 09:05 Stool C. difficile GDH Antigen & Toxins - Final Vitals: Vital Signs (12 hours) Temp Pulse Resp BP Pulse Ox 07/30/20 16:35 98.3 F 62 114/64 99 07/30/20 12:00 98.4 F 66 20 124/59 L 97 07/30/20 08:00 98.6 F 57 L 18 96/51 L 99 07/30/20 07:31 60 16 100 Weight Weight 186 lb 4 oz Physical Exam: The patient was seen and examined on the day of discharge. Eye: PERRL ENT: normocephalic atraumatic Neck: supple Respiratory: CTAB Cardiovascular: RRR Gastrointestinal: soft Extremities: no cyanosis Skin: normal turgor Neurological: cranial nerve grossly intact, normal sensation to touch Problem (1) Diarrhea Code(s): R19.7 - DIARRHEA, UNSPECIFIED Status: Acute (2) Suicidal ideation Code(s): R45.851 - SUICIDAL IDEATIONS Status: Acute (3) Urinary tract infection Status: Acute (4) COPD (chronic obstructive pulmonary disease) Status: Chronic Time Spent in discharge related activities (mins): 35 Plan Prescriptions: Promethazine [Phenergan] 25 mg PO Q6HR PRN #10 tab PRN Reason: Nausea metroNIDAZOLE [Flagyl] 500 mg PO TID #15 tab Levofloxacin [Levaquin] 500 mg PO DAILY #5 tab Home Medications: Medication Instructions Recorded Confirmed Type DULoxetine [Cymbalta] 90 mg PO DAILY 07/28/20 07/28/20 History Diazepam [Valium] 5 mg PO 09,16,22 07/28/20 07/29/20 History Fondaparinux Sodium 7.5 mg SQ DAILY 07/28/20 07/28/20 History Mirtazapine [Remeron] 45 mg PO HS 07/28/20 07/28/20 History Montelukast Sodium [Singulair] 10 mg PO DAILY 07/28/20 07/28/20 History OXcarbazepine [Trileptal] 1,200 mg PO DAILY 07/28/20 07/28/20 History Propranolol [Inderal] 20 mg PO TID 07/28/20 07/28/20 History Topiramate [Topamax] 25 mg PO TID 07/28/20 07/28/20 History Umeclidinium [place] [Incruse 1 inh IH DAILY 07/28/20 07/28/20 History Ellipta] clonazePAM [Clonazepam] 1 mg PO TID 07/28/20 07/28/20 History traZODone HCl [Trazodone HCl] 225 mg PO HS 07/28/20 07/28/20 History Levofloxacin [Levaquin] 500 mg PO DAILY #5 tab 07/30/20 Rx Promethazine [Phenergan] 25 mg PO Q6HR PRN #10 tab 07/30/20 Rx metroNIDAZOLE [Flagyl] 500 mg PO TID #15 tab 07/30/20 Rx Allergies: acetaminophen [From Vicodin] Allergy (Verified 07/28/20 08:45) butorphanol [From Stadol] Allergy (Verified 07/28/20 08:45) codeine Allergy (Verified 07/28/20 08:44) hydrocodone [From Vicodin] Allergy (Verified 07/28/20 08:45) hydromorphone [From Dilaudid] Allergy (Verified 07/28/20 08:45) ketorolac [From Toradol] Allergy (Verified 07/28/20 08:45) NSAIDS (Non-Steroidal Anti-Inflamma Allergy (Verified 07/28/20 08:45) ondansetron [From Zofran] Allergy (Verified 07/28/20 08:45) prednisone Allergy (Verified 07/28/20 08:45) prochlorperazine [From Compazine] Allergy (Verified 07/28/20 08:45) Discharge Instructions:: Please follow up with [facility] and PCP complete the course of antibiotic as prescribed Return to ED if your symptoms recurs or worsened Activity:: Activity as Tolerated Referrals: [facility] [Primary Care Provider] - Disposition: HOME Quality CORE MEASURES:: N/A
[2020-07-30] MEDS ORDERED: PRE FILLED SC SCH (17:45)
[2020-07-30] MEDS ORDERED: FONDAPARINUX SODIUM SC SCH (17:45)
== END 2020-07-30 18:14 | disposition home or self-care (01) ==
LOC: ERS 01:12 → T4-B 12:05
PROVIDERS: ADMIT Internal Medicine; ATTEND Family Medicine
DX: R45.851 Suicidal ideations (principal); R19.7 Diarrhea, unspecified; N39.0 Urinary tract infection, site not specified; J44.9 Chronic obstructive pulmonary disease, unspecified; F32.9 Major depressive disorder, single episode, unspecified; F43.10 Post-traumatic stress disorder, unspecified; F41.9 Anxiety disorder, unspecified; D68.61 Antiphospholipid syndrome; G43.909 Migraine, unspecified, not intractable, without status migrainosus; F60.3 Borderline personality disorder; F17.210 Nicotine dependence, cigarettes, uncomplicated; K76.0 Fatty (change of) liver, not elsewhere classified; Z79.899 Other long term (current) drug therapy; Z88.5 Allergy status to narcotic agent; Z88.6 Allergy status to analgesic agent; Z88.8 Allergy status to other drugs, medicaments and biological substances; Z99.81 Dependence on supplemental oxygen; Z20.822 Contact with and (suspected) exposure to COVID-19
CPT/HCPCS: 36415; 70450; 71045; 74177; 80053; 80306; 80307; 81003; 81015; 81025; 83605; 83735; 84443; 85025; 87086; 87324; 87449; 87635; 93005; 94640; 96365; 96366; 96367; 96368; 96372; 96375; 96376; G0378; J0696; J1200; J1642; J1652; J1885; J2270; J2550; J2765; Q9967; U0003; U0005

== ENCOUNTER 2023-02-09 20:40 | Observation (INO) | payer OTHER ==
[~2023-02-09 20:40] MED LIST changes: -ISOVUE-370 76%-LOCM 1 ML ONE; +Iopamidol-370 76% 500 ML MDV (1 ML CHARGE) ONE
[2023-02-09] MEDS ORDERED: Magnesium 2 GM/50 ML BAG (IN WATER) ONE (21:00)
[2023-02-09] MEDS ORDERED: Morphine 4 MG/ML VIAL ONE (21:06)
[2023-02-09] MEDS ORDERED: Promethazine HCl 25 MG/ML VIAL ONE (21:06)
[2023-02-09 21:54] LABS: #Basophils 0.1 thou/uL (0.0-0.2); #Monocytes 1.3 thou/uL (0.11-0.59); #Neutrophils 15.5 thou/uL (1.40-6.50); %Basophils 0.4 % (0.0-1.0); %Eosinophils 0.1 % (0.0-10.0); %Lymphocytes 23.1 % (21.0-51.0); %Neutrophils 69.9 % (42.0-75.0); Hematocrit 44.1 % (36.0-47.0); Hemoglobin 15.5 g/dL (12.0-16.0); Mean Corpuscular HGB CONC 35.1 g/dL (32.0-36.0); Mean Corpuscular Volume 85.3 fl (78.0-98.0); Mean Platelet Volume 9.9 fL (7.4-10.4); Platelet Count 442 10x3/uL (130-400); RBC Distribution Width 16.7 % (11.5-14.5); Red Blood Cell (RBC) Count 5.17 mill/uL (4.20-5.40); White Blood Cell (WBC) Count 22.2 10x3/uL (4.8-10.8)
[2023-02-09 22:01] LABS: BHCG - Serum Negative (NEGATIVE); Pregs Control Background? CLEAR/WHITE (CLR/WHITE); Pregs Control Bar Appear? YES (CONTROL BAR)
[2023-02-09 22:19] LABS: ALT (SGPT) 29 U/L (8-55); AST (SGOT) 20 U/L (5-34); Albumin 4.3 g/dL (3.5-5.0); Alkaline Phosphatase 104 U/L (40-110); Anion Gap 23 mmol/L (10-20); BUN (Urea Nitrogen) 12 mg/dL (7.0-18.7); Bilirubin, Total 0.7 mg/dL (0.2-1.2); Calc. Creatinine Clearance 0 mL/min (70-130); Calcium 10.2 mg/dL (7.8-10.44); Carbon Dioxide 15 mmol/L (22-29); Chloride 102 mmol/L (98-107); Estimated GFR 53; Globulin 3.9 g/dL (2.4-3.5); Glucose 110 mg/dL (70-105); Lipase 6 U/L (8-78); Magnesium 2.4 mg/dL (1.6-2.6); Protein, Total 8.2 g/dL (6.0-8.3); Sodium 137 mmol/L (136-145)
[2023-02-09] MEDS ORDERED: Haloperidol Lactate 5 MG/ML VIAL ONE (22:19)
[2023-02-09 22:23] LABS: Prothrombin Time 13.9 sec (12.0-14.7)
[2023-02-09 22:28] LABS: PTT 21.6 sec (22.9-36.1)
[2023-02-09 22:43] LABS: Troponin I Less than 0.010 ng/mL (< 0.028)
[2023-02-09] MEDS ORDERED: Potassium Chloride 20 MEQ/100 ML PREMIX BAG ONE (23:18)
[2023-02-10] MEDS ORDERED: cefTRIAXone (ROCEPHIN) 2 GM VIAL ONE (00:22)
[2023-02-10] MEDS ORDERED: Azithromycin 500 MG VIAL ONE (00:48)
[2023-02-10 01:01] LABS: Lactic Acid 1.4 mmol/L (0.5-2.2)
[2023-02-10 01:28] VITALS: BMI 24.3
[2023-02-10] MEDS ORDERED: Promethazine 25 MG TAB PO PRN (01:55)
[2023-02-10] MEDS ORDERED: Topiramate 25 MG TAB PO PRN (01:59)
[2023-02-10] MEDS ORDERED: Acetaminophen 325 MG TAB PO PRN (02:08)
[2023-02-10] MEDS ORDERED: Ipratropium Bromide 2.5 ml Neb NEB PRN (02:10)
[2023-02-10] MEDS ORDERED: Diazepam 5 MG TAB PO SCH ×3 (02:30→09:00)
[2023-02-10 02:36] LABS: SARS-CoV-2 NAA Rapid Test Not Detected (NotDetected)
[2023-02-10] MEDS: Lactated Ringer's 1,000 ML IV SCH ×2 (03:43→12:36)
[2023-02-10 04:54] LABS: Hematocrit 37.2 % (36.0-47.0); Hemoglobin 12.7 g/dL (12.0-16.0); Mean Corpuscular HGB CONC 34.1 g/dL (32.0-36.0); Mean Corpuscular Hemoglobin 29.9 pg (27.0-31.0); Mean Corpuscular Volume 87.5 fl (78.0-98.0); Mean Platelet Volume 10.4 fL (7.4-10.4); Platelet Count 362 10x3/uL (130-400); RBC Distribution Width 17.1 % (11.5-14.5); Red Blood Cell (RBC) Count 4.25 mill/uL (4.20-5.40); White Blood Cell (WBC) Count 16.2 10x3/uL (4.8-10.8)
[2023-02-10 05:45] LABS: Delete Auto Diff?? YES; Manual Diff?? YES
[2023-02-10 06:33] LABS: Band 1 % (5-11); Burr Cells SLIGHT = 2-5 cells HPF (0-1); CellaVision Operator ID LAB.JMM; Eosinophils 1 % (0-10); Lymphocytes 21 % (21-51); Macrocytosis SLIGHT = 6-15 cells HPF (0-5); Monocytes 9 % (0-10); Neutrophil 67 % (42-75); Platelet Adequacy Comment Platelets Normal; Polychromasia SLIGHT = 2-3 cells HPF (0-2); Total Cell Count 100
[2023-02-10] MEDS: Ipratropium/Albuterol 3 ML NEB NEB SCH ×3 (07:00→14:57)
[2023-02-10 07:11] LABS: ALT (SGPT) 22 U/L (8-55); AST (SGOT) 18 U/L (5-34); Albumin 3.4 g/dL (3.5-5.0); Alkaline Phosphatase 84 U/L (40-110); Anion Gap 16 mmol/L (10-20); BUN (Urea Nitrogen) 10 mg/dL (7.0-18.7); Bilirubin, Total 0.4 mg/dL (0.2-1.2); Calc. Creatinine Clearance 100 mL/min (70-130); Calcium 8.6 mg/dL (7.8-10.44); Carbon Dioxide 20 mmol/L (22-29); Chloride 102 mmol/L (98-107); Estimated GFR 97; Globulin 3.2 g/dL (2.4-3.5); Glucose 85 mg/dL (70-105); Potassium 2.8 mmol/L (3.5-5.1); Protein, Total 6.6 g/dL (6.0-8.3); Sodium 135 mmol/L (136-145)
[2023-02-10] MEDS ORDERED: Potassium Chloride 20 MEQ TAB PO SCH (08:30)
[2023-02-10] MEDS ORDERED: Apixaban 5 MG TAB PO SCH (09:00)
[2023-02-10] MEDS ORDERED: methylPREDNISolone Sod Succ 40 MG VIAL IVP SCH (09:00)
[2023-02-10] MEDS ORDERED: DULoxetine 30 MG CAP PO SCH (09:00)
[2023-02-10] MEDS ORDERED: Montelukast Sodium 10 mg Tablet PO SCH (09:00)
[2023-02-10] MEDS ORDERED: clonazePAM 1 MG TAB PO SCH (09:00)
[2023-02-10] MEDS: Propranolol 10 MG TAB PO SCH ×2 (09:06→16:31)
[2023-02-10] MEDS: Potassium Chloride 20 MEQ in Premix Bag 1 BAG IVPB SCH ×2 (10:32→11:13)
[2023-02-10 15:01] LABS: Anion Gap 13 mmol/L (10-20); BUN (Urea Nitrogen) 8 mg/dL (7.0-18.7); Calc. Creatinine Clearance 107 mL/min (70-130); Calcium 9.1 mg/dL (7.8-10.44); Carbon Dioxide 21 mmol/L (22-29); Chloride 107 mmol/L (98-107); Estimated GFR 106; Glucose 118 mg/dL (70-105); Potassium 3.9 mmol/L (3.5-5.1); Sodium 137 mmol/L (136-145)
[2023-02-10 15:30] VITALS: BP 104/57; TEMP 97.7
[2023-02-10] MEDS ORDERED: Mirtazapine 15 MG TAB PO SCH (21:00)
[2023-02-10] MEDS ORDERED: Doxycycline 100 MG CAP PO SCH (21:00)
[2023-02-10] MEDS ORDERED: traZODone HCl 150 MG TAB PO SCH (21:00)
[2023-02-11] MEDS ORDERED: Azithromycin 500 MG in Sodium Chloride 0.9% 250 ML 250 ML IVPB SCH (01:00)
[2023-02-11] MEDS ORDERED: cefTRIAXone\\ROCEPHIN 1 GM in Sodium Chloride 0.9% 100 ML IVPB SCH (01:00)
== END 2023-02-10 17:08 | disposition home or self-care (01) ==
LOC: ERS 20:40 → 2NO 23:56
PROVIDERS: ADMIT Family Medicine; ATTEND Family Medicine
DX: J44.1 Chronic obstructive pulmonary disease with (acute) exacerbation (principal); J18.9 Pneumonia, unspecified organism; N17.9 Acute kidney failure, unspecified; E86.0 Dehydration; E87.6 Hypokalemia; E87.20 Acidosis, unspecified; D68.61 Antiphospholipid syndrome; F32.9 Major depressive disorder, single episode, unspecified; F42.9 Obsessive-compulsive disorder, unspecified; F43.10 Post-traumatic stress disorder, unspecified; F41.1 Generalized anxiety disorder; F17.210 Nicotine dependence, cigarettes, uncomplicated; Z79.01 Long term (current) use of anticoagulants; Z79.899 Other long term (current) drug therapy; Z90.49 Acquired absence of other specified parts of digestive tract; Z88.6 Allergy status to analgesic agent; Z88.8 Allergy status to other drugs, medicaments and biological substances
CPT/HCPCS: 36415; 71045; 71275; 80053; 83605; 83690; 83735; 83880; 84145; 84484; 84703; 85025; 85610; 85730; 87040; 93005; 94640; 96365; 96367; 96372; 96375; 96376; G0378; J0456; J0696; J1630; J1642; J2270; J2550; J2920; J3475; J3480; J7120; J7620; Q9967